=== PATIENT | female | born 1950 ===

== ENCOUNTER 2017-09-15 15:21 | Emergency (ER) | payer BC, OTHER ==
[2017-09-15 17:27] VITALS: BP 141/68
--- NOTE | 2017-09-15 17:41 | UC ---
FLU HPI - HPI Summary HPI Summary: 67 y/o female presents to the urgent care c/o productive cough, fatigue, body aches, chills, nasal congestion w/ clear nasal discharge for the past 2 days. seh also had low grade subjective fever w/ mild wheezing and SOB since last night. P{t has taken Tylenol PO and Robitussin Po to alleviate symptoms w/o any improvement. Pt denies chest pain, abdominal pain, N/V/D. - History of Current Complaint Chief Complaint: UCRespiratory Stated Complaint: COLD LIKE SYMPTOMS Time Seen by Provider: 09/15/17 17:35 Hx Obtained From: Patient ?: No Onset/Duration: Gradual Onset Severity Currently: Mild Severity Initially: Mild Pain Intensity: 3 Pain Scale Used: 0-10 Numeric Associated Signs & Symptoms: Positive: Fever, Myalgia, Cough, Nasal Congestion, Headache - Risk Factors Influenza Risk Factors: Negative, Age 65 y/o or Older - Allergy/Home Medications Allergies/Adverse Reactions: Allergies Allergy/AdvReac Type Severity Reaction Status Date / Time Penicillins Allergy Rash Verified 09/15/17 17:36 naproxen AdvReac Tachycardia Verified 09/15/17 17:36 Home Medications: Home Medications Atorvastatin* [Lipitor 10 MG*] 10 mg PO 1700 09/15/17 [History Confirmed ] Fluticasone Furoate [Flonase Sensimist] 9.9 ml NS DAILY 09/15/17 [History Confirmed 09/15/17] PMH/Surg Hx/FS Hx/Imm Hx Previously Healthy: Yes Endocrine History: Dyslipidemia Respiratory History: Asthma GI/ History: Gastroesophageal Reflux - Surgical History Surgical History: Yes Surgery Procedure, Year, and Place: Tonsillectomy, 1970. Hysterectomy, 1994. Bilateral Oopherectomy, 2012 - Family History Known Family History: Positive: Cardiac Disease - Social History Occupation: Employed Full-time Lives: With Family Alcohol Use: Weekly Alcohol Amount: wine Substance Use Type: None Smoking Status (MU): Never Smoked Tobacco Review of Systems Constitutional: Fever, Chills, Fatigue, Other - body aches Skin: Negative Eyes: Negative ENT: Nasal Discharge, Sinus Congestion Respiratory: Shortness Of Breath, Cough - productive, Other - wheezing Cardiovascular: Negative Gastrointestinal: Negative Genitourinary: Negative Motor: Negative Neurovascular: Negative Musculoskeletal: Negative Neurological: Headache Psychological: Negative Is Patient Immunocompromised?: No All Other Systems Reviewed And Are Negative: Yes Physical Exam - Summary Physical Exam Summary: Vital Signs Reviewed: Yes General: well developed, well nourished female sitting in the examining table w/ o any apparent distress Eyes: Positive: Conjunctiva Clear - PERRLA, EOMI, fundi grossly normal ENT: Positive: Normal ENT inspection, Hearing grossly normal, Pharynx normal, Nasal congestion - edematous and erythematous nasal mucosa, Nasal drainage - yellowish drainage, TMs normal. Negative: Tonsillar swelling, Tonsillar exudate Neck: Positive: Supple, Nontender, No Lymphadenopathy Respiratory: no orthopnea or dyspnea. Able to speak in full sentences, no retractions or accessory muscle use, no tripod position, stridor, or head bobbing. positive breath sounds bilaterally, RT lung w/ scattered mild wheezing , no rhonchi, no crackles or rales. Cardiovascular: Positive: RRR, No Murmur, Pulses Normal, Brisk Capillary Refill Abdomen Description: Positive: Nontender, No Organomegaly, Soft. Negative: CVA Tenderness (R), CVA Tenderness (L) Bowel Sounds: Positive: Present Musculoskeletal Exam: Normal Musculoskeletal: Positive: Strength Intact, ROM Intact, No Edema Neurological Exam: Normal Psychological Exam: Normal Skin Exam: Normal Triage Information Reviewed: Yes Vital Signs: Initial Vital Signs Temp 98.3 F 09/15/17 17:21 Pulse 87 09/15/17 17:21 Resp 18 09/15/17 17:21 BP 141/68 09/15/17 17:21 Pulse Ox 96 09/15/17 17:21 Flu Course/Dx - Course Course Of Treatment: 67 y/o female presents to the urgent care c/o productive cough, fatigue, body aches, chills, nasal congestion w/ clear nasal discharge for the past 2 days. seh also had low grade subjective fever w/ mild wheezing and SOB since last night. P{t has taken Tylenol PO and Robitussin Po to alleviate symptoms w/o any improvement. Pt denies chest pain, abdominal pain, N/ V/D. Hx obtained. Pt w/ asthma exacerbation and URI or examination. Influenza A &B ordered: result: Influenza A positive.Pt given prednisone PO and Duoneb treatment to alleviate wheezing. Pt given first dose of Tamiflu PO since pharmacy is closed now. Pt Rx Tamiflu PO, Prednisone PO, albuteol inhaler and advised to take ibuprofen PO to alleviates symptoms. Advised on hand washing and wear a mask to avoid spreading. Pt advised to rest, increase fluid intake, eat well and avoid strenuous exercise. If symptoms do not improve or worsen advised to return to the urgent care or f/u with her PCP for further evaluation and treatment.Pt's BP is elevated today advised to decrease salt in diet, monitor BP and f/u with PCP for further management. Pt understood and agreed with plan of care. Pt left clinic hemodynamically stable, A&OX3 - Differential Dx/Diagnosis Differential Diagnosis/HQI/PQRI: Bronchitis, Influenza, Pneumonia, Upper Respiratory Infection Provider Diagnoses: 1- Influenza A. 2- Asthma exacerbation due to Influenza A. 3- Elevated BP w/o Hx of HTN Discharge - Sign-Out/Discharge Documenting (check all that apply): Discharge/Admit/Transfer - D/C home - Discharge Plan Condition: Stable Disposition: HOME Prescriptions: Albuterol HFA INHALER* [Ventolin HFA Inhaler*] 1 - 2 puff INH Q6H PRN #1 mdi PRN Reason: Wheezing Albuterol/Ipratropium NEB.TRIP* [Duoneb (Albuterol 2.5 MG/Ipratropium 0.5 MG)] 1 neb INH Q6H PRN #1 jaylon PRN Reason: Wheezing Oseltamivir CAP* [Tamiflu CAP*] 75 mg PO BID #9 cap predniSONE TAB* [Deltasone TAB*] 20 mg PO DAILY #8 tab Patient Education Materials: Asthma (ED), Influenza (ED), Low-Sodium Diet (ED) Forms: *Work Release Referrals: Nataly Decker MD [Primary Care Provider] - 2 Days Additional Instructions: 1- Please take the full course of the antiviral to avoid resistance. Encourage hand washing and wear a mask to avoid spreading. 2- Take Prednisone PO taper dose as directed. First dose given at the clinic tonight. 3-Pleas do Duo neb treatment as directed to alleviate wheezing. 4-Please continue taking Tylenol/ Ibuprofen 800mg PO q6-8hrs prn as instructed after meals to alleviate fever, and sore throat. Increase fluid intake, eat well, rest and avoid strenuous exercise 5-If symptoms do not improve or worsen please return to the urgent care or f/u with your PCP in 2 days for further evaluation and treatment. 6- Your BP is elevated today. please decrease salt in your diet, monitor BP and if it continues to be elevated please f/u with your PCP for further management - Billing Disposition and Condition Condition: STABLE Disposition: HOME
[2017-09-15] MEDS ORDERED: Albuterol/Ipratropium NEB.SOL* Albuterol 2.5 MG/Ipratropium 0.5 MG 3 ML INH ONE (17:51)
[2017-09-15] MEDS ORDERED: predniSONE TAB* 20 MG PO ONE (17:51)
[2017-09-15] MEDS ORDERED: Oseltamivir CAP* 75 MG CAP PO ONE (18:40)
== END 2017-09-15 19:00 | disposition home or self-care (01) ==
LOC: UCCORT 15:21
DX: J11.1 Influenza due to unidentified influenza virus with other respiratory manifestations (principal); J45.901 Unspecified asthma with (acute) exacerbation; R03.0 Elevated blood-pressure reading, without diagnosis of hypertension; Z88.0 Allergy status to penicillin; Z88.8 Allergy status to other drugs, medicaments and biological substances
CPT/HCPCS: 87502; 99203; A9270-GY; G0463; J7512